=== PATIENT | female | born 1995 | race Two or more races ===

== ENCOUNTER 2022-12-01 11:56 | Inpatient (IN) | payer MEDICAID ==
[~2022-12-01] VITALS: Ht 167.6 cm; Wt 63.5 kg
[2022-12-01 12:44] LABS: BASOPHILS % (AUTO) 0.8 % (0.0-2.0); EOSINOPHILS % (AUTO) 0.5 % (1.0-6.0); HEMATOCRIT 29.9 % (36-46); HEMOGLOBIN 9.5 g/dL (12.0-16.0); LYMPHOCYTES # (AUTO) 1.1 K/uL (1.0-4.8); LYMPHOCYTES % (AUTO) 14.7 % (22.0-44.0); MEAN CORPUSCULAR HEMOGLOBIN 22.6 pg (26.0-34.0); MEAN CORPUSCULAR HGB CONC 31.8 G/dL (31.0-37.0); MEAN CORPUSCULAR VOLUME 71 fL (80-100); MONOCYTES # (AUTO) 0.4 K/uL (0.1-1.0); MONOCYTES % (AUTO) 5.5 % (2.0-9.0); NEUTROPHILS # (AUTO) 6.1 K/uL (1.8-7.7); NEUTROPHILS % (AUTO) 78.5 % (40.0-70.0); PLATELET COUNT (AUTO) 295 K/uL (150-450); RED BLOOD CELL COUNT(AUTO) 4.21 MIL/uL (4.00-5.20); RED CELL DISTRIBUTION WIDTH 18.7 % (11.5-14.5); WHITE BLOOD COUNT (AUTO) 7.7 K/uL (4.5-11.0)
[2022-12-01 12:56] LABS: ANION GAP 7 mmol/L (8-16); CALCIUM, TOTAL 8.9 mg/dL (8.8-10.5); CARBON DIOXIDE 28 mmol/L (22-29); CHLORIDE 102 mmol/L (98-107); CREATININE 0.75 mg/dL (0.60-1.30); GLOMERULAR FILTR. RATE CALC > 60 mL/min (>60); GLUCOSE,RANDOM 94 mg/dL (70-110); POTASSIUM 3.8 mmol/L (3.5-5.1); SODIUM SERUM 137 mmol/L (136-145); UREA NITROGEN, BLOOD 13 mg/dL (7-18)
[2022-12-01 13:00] LABS: ALCOHOL, BLOOD (SERUM) < 3 mg/dL (0-10)
[2022-12-01 13:06] LABS: ALANINE AMINOTRANSFERASE 14 U/L (12-78); ALBUMIN 3.6 g/dL (3.4-5.0); ALKALINE PHOSPHATASE 64 U/L (46-116); ASPARTATE AMINOTRANSFERASE 14 U/L (15-37); BILIRUBIN,TOTAL 0.2 mg/dL (0.1-1.0); HCG,QUANTITATIVE < 1 mIU/mL (0-6); TOTAL PROTEIN, SERUM 7.3 g/dL (6.4-8.2)
[2022-12-01 13:09] LABS: RBC MORPHOLOGY COMMENT ABNORMAL RBC MORPH
[2022-12-01 13:29] LABS: COVID AG,FIA SOURCE NASAL SWAB
[2022-12-01 13:42] LABS: ALCOHOL, URINE DRUG SCREEN NEGATIVE (NEGATIVE); AMPHET/METH SCREEN,URINE NEGATIVE (NEGATIVE); BARBITURATE SCREEN, URINE NEGATIVE (NEGATIVE); BENZODIAZEPINES SCREEN,URINE NEGATIVE (NEGATIVE); CANNABINOID SCREEN,URINE NEGATIVE (NEGATIVE); COCAINE SCREEN,URINE NEGATIVE (NEGATIVE); METHADONE SCREEN, URINE NEGATIVE (NEGATIVE); OPIATE SCREEN,URINE NEGATIVE (NEGATIVE); PHENCYCLIDINE SCREEN,URINE NEGATIVE (NEGATIVE)
[2022-12-01 13:51] LABS: SARS-COV2 (COVID) ANTIGEN,FIA Negative (Negative)
[2022-12-01] MEDS ORDERED: OLANZapine 5 MG TABLET PO ONE (14:15)
[2022-12-01] MEDS ORDERED: LORazepam 1 MG TABLET PO ONE (14:15)
[2022-12-01] MEDS ORDERED: ZOLPIDEM TARTRATE 5 MG TABLET PO PRN (14:45)
[2022-12-01] MEDS ORDERED: LORazepam 1 MG TABLET PO PRN (14:45)
[2022-12-01] MEDS ORDERED: QUEtiapine FUMARATE 100 MG TABLET PO PRN (14:45)
[2022-12-01 15:02] VITALS: BP 126/80; PULSE 66; RESP 18; TEMP 97.8
[2022-12-01 15:34] LABS: APPEARANCE,URINE CLEAR (CLEAR); BILIRUBIN,URINE NEGATIVE (NEGATIVE); COLOR,URINE LIGHT YELLOW (YELLOW); GLUCOSE, URINE (UA) NEGATIVE (NEGATIVE); KETONES,URINE NEGATIVE (NEGATIVE); LEUKOCYTE ESTERASE ,URINE SMALL (NEGATIVE); NITRATE,URINE NEGATIVE (NEGATIVE); OCCULT BLOOD,URINE NEGATIVE (NEGATIVE); PH,URINE 6.5 (5.0-8.0); PROTEIN,URINE NEGATIVE (NEGATIVE); SPECIFIC GRAVITIY, URINE 1.024 (1.003-1.030); UROBILINOGEN,URINE <=1.0 mg/dL (<=1.0)
[2022-12-01 15:42] LABS: RBC,URINE None Seen /HPF (0-2)
[2022-12-01 15:43] LABS: BACTERIA,URINE None Seen /HPF (None Seen); SQUAMOUS EPITHELIAL CELL,UR Few /LPF (None Seen)
[2022-12-01 22:59] VITALS: BP 118/75; PULSE 72; RESP 18; TEMP 97.6; O2SAT 100
[2022-12-02 09:06] VITALS: BP 121/72; PULSE 84; RESP 17; TEMP 97.9; O2SAT 99
[2022-12-02] MEDS: OLANZapine 5 MG TABLET PO SCH (13:00)
[2022-12-02] MEDS ORDERED: ALBUTEROL SULFATE HFA 90 MCG/PUFF 8 GM INHALER IH PRN (15:00)
[2022-12-02] MEDS ORDERED: LOPERAMIDE HCL 2 MG CAPSULE PO PRN (15:00)
[2022-12-02] MEDS ORDERED: MAGNESIUM HYDROXIDE SUSPENSION 30 ML UDCUP PO PRN (15:00)
[2022-12-02] MEDS ORDERED: PETROLATUM,WHITE 28 GM JELLY TP PRN (15:00)
[2022-12-02] MEDS ORDERED: IBUPROFEN 400 MG TABLET PO PRN (15:00)
[2022-12-02] MEDS ORDERED: ACETAMINOPHEN 325 MG TABLET PO PRN (15:00)
[2022-12-02] MEDS ORDERED: DOCUSATE SODIUM 100 MG CAPSULE PO PRN (15:00)
[2022-12-02] MEDS ORDERED: NICOTINE 14 MG/24 HOUR PATCH TD PRN (15:00)
[2022-12-02] MEDS ORDERED: CloNIDine HCL 0.1 MG TABLET PO PRN (15:00)
[2022-12-02] MEDS ORDERED: ONDANSETRON HCL 4 MG TABLET PO PRN (15:00)
[2022-12-02] MEDS ORDERED: GuaiFENesin/D-METHORPHAN [SUGAR-FREE] 200-20MG/10 ML SYRUP UDCUP PO PRN (15:00)
[2022-12-02] MEDS ORDERED: MAG HYDROX/ALUMINUM HYD/SIMETH ES 30 ML SUSPENSION UDCUP PO PRN (15:00)
[2022-12-02 20:27] VITALS: BP 101/62; PULSE 87; RESP 18; TEMP 97.8; O2SAT 97
[2022-12-02] MEDS ORDERED: TraZODone HCL 50 MG TABLET PO SCH (21:00)
[2022-12-03 03:06] LABS: HEPATITIS C AB (EIA) Non Reactive (Non Reactive)
[2022-12-03] MEDS: OLANZapine 5 MG TABLET PO SCH (08:39)
[2022-12-03 08:50] LABS: HEMOGLOBIN A1C 5.1 % (3.8-5.6)
[2022-12-03 09:01] LABS: CHOL/HDL RATIO 2.6 (3.9-5.7); THYROID STIMULATING HORMONE 0.97 uIU/mL (0.36-3.74)
[2022-12-03 10:15] VITALS: BP 102/69; PULSE 75; RESP 17; TEMP 98.6; O2SAT 100
[2022-12-03] MEDS ORDERED: TRAZ-283 PO (11:03)
[2022-12-03] MEDS ORDERED: OLAN5TAB52 PO (11:04)
[2022-12-03] MEDS ORDERED: TRAZ-184 PO (11:10)
== END 2022-12-03 11:35 | disposition home or self-care (01) | DRG 750 ==
LOC: EMS 12:12 → B2S 19:46
PROVIDERS: ADMIT Psychiatry & Neurology Child & Adolescent Psychiatry; ATTEND Psychiatry & Neurology Child & Adolescent Psychiatry
DX: F25.1 Schizoaffective disorder, depressive type (principal); R45.851 Suicidal ideations; D64.9 Anemia, unspecified; F41.9 Anxiety disorder, unspecified; G47.00 Insomnia, unspecified; Z20.822 Contact with and (suspected) exposure to COVID-19
CPT/HCPCS: 80053; 80061; 80307; 81001; 83036; 84146; 84443; 84702; 85025; 86803; 87340; 99285; G0480

== ENCOUNTER 2023-02-25 15:22 | Emergency (ER) | payer MEDICAID ==
[~2023-02-25] VITALS: Ht 167.6 cm; Wt 90.9 kg
[~2023-02-25 15:22] MED LIST: OLAN5TAB52 PO; TRAZ-184 PO
[2023-02-25 15:23] VITALS: TEMP 98.6
[2023-02-25] MEDS ORDERED: HALO10TA20 PO (15:29)
[2023-02-25] MEDS ORDERED: OLAN5TAB77 PO (15:29)
[2023-02-25] MEDS ORDERED: ESCI5TAB16 PO (15:29)
[2023-02-25] MEDS ORDERED: TRAZ-252 PO (15:29)
[2023-02-25 16:58] LABS: EOSINOPHILS % (AUTO) 0.7 % (1.0-6.0); HEMATOCRIT 28.4 % (36-46); HEMOGLOBIN 8.6 g/dL (12.0-16.0); LYMPHOCYTES # (AUTO) 2.2 K/uL (1.0-4.8); LYMPHOCYTES % (AUTO) 24.6 % (22.0-44.0); MEAN CORPUSCULAR HEMOGLOBIN 20.2 pg (26.0-34.0); MEAN CORPUSCULAR HGB CONC 30.3 G/dL (31.0-37.0); MEAN CORPUSCULAR VOLUME 67 fL (80-100); MONOCYTES # (AUTO) 0.7 K/uL (0.1-1.0); MONOCYTES % (AUTO) 7.5 % (2.0-9.0); NEUTROPHILS # (AUTO) 5.9 K/uL (1.8-7.7); NEUTROPHILS % (AUTO) 66.2 % (40.0-70.0); PLATELET COUNT (AUTO) 378 K/uL (150-450); RED BLOOD CELL COUNT(AUTO) 4.26 MIL/uL (4.00-5.20); RED CELL DISTRIBUTION WIDTH 17.3 % (11.5-14.5); WHITE BLOOD COUNT (AUTO) 8.8 K/uL (4.5-11.0)
[2023-02-25 17:09] LABS: ANION GAP 8 mmol/L (8-16); CALCIUM, TOTAL 8.9 mg/dL (8.8-10.5); CARBON DIOXIDE 28 mmol/L (22-29); CHLORIDE 104 mmol/L (98-107); CREATININE 0.66 mg/dL (0.60-1.30); GLOMERULAR FILTR. RATE CALC > 60 mL/min (>60); GLUCOSE,RANDOM 99 mg/dL (70-110); POTASSIUM 4.4 mmol/L (3.5-5.1); SODIUM SERUM 140 mmol/L (136-145); UREA NITROGEN, BLOOD 12 mg/dL (7-18)
[2023-02-25 17:22] LABS: ALANINE AMINOTRANSFERASE 28 U/L (12-78); ALBUMIN 3.6 g/dL (3.4-5.0); ALKALINE PHOSPHATASE 86 U/L (46-116); ASPARTATE AMINOTRANSFERASE 20 U/L (15-37); BILIRUBIN,TOTAL 0.1 mg/dL (0.1-1.0); HCG,QUANTITATIVE < 1 mIU/mL (0-6); TOTAL PROTEIN, SERUM 7.3 g/dL (6.4-8.2)
[2023-02-25 17:41] LABS: ALCOHOL, BLOOD (SERUM) < 3 mg/dL (0-10)
[2023-02-25 17:45] LABS: RBC MORPHOLOGY COMMENT ABNORMAL RBC MORPH
[2023-02-25 17:50] LABS: ERYTHROCYTE SEDIMENTATION RATE 30 MM/HR (0-20)
[2023-02-25 20:08] VITALS: BP 116/63; PULSE 79; RESP 18
[2023-02-25 20:23] LABS: ALCOHOL, URINE DRUG SCREEN NEGATIVE (NEGATIVE); AMPHET/METH SCREEN,URINE NEGATIVE (NEGATIVE); BARBITURATE SCREEN, URINE NEGATIVE (NEGATIVE); BENZODIAZEPINES SCREEN,URINE NEGATIVE (NEGATIVE); CANNABINOID SCREEN,URINE NEGATIVE (NEGATIVE); COCAINE SCREEN,URINE NEGATIVE (NEGATIVE); METHADONE SCREEN, URINE NEGATIVE (NEGATIVE); OPIATE SCREEN,URINE NEGATIVE (NEGATIVE); PHENCYCLIDINE SCREEN,URINE NEGATIVE (NEGATIVE)
== END 2023-02-25 20:40 | disposition home or self-care (01) ==
LOC: EMS 15:37
DX: G44.209 Tension-type headache, unspecified, not intractable (principal); F41.9 Anxiety disorder, unspecified; F20.9 Schizophrenia, unspecified
CPT/HCPCS: 99283; 80053; 84702; 85025; 85651; 36415; 80307; G0480